=== PATIENT | female | born 1990 | race Asian ===

== ENCOUNTER 2024-10-19 10:34 | Inpatient (IN) | payer BC ==
[2024-10-19] MEDS ORDERED: fentaNYL 100 MCG/2 ML SDV IVPUSH PRN (16:17)
[2024-10-19] MEDS ORDERED: Famotidine 20 MG/2 ML SDV IVPUSH PRN (16:17)
[2024-10-19] MEDS ORDERED: Misoprostol 100 MCG Tab RECTAL PRN (16:17)
[2024-10-19] MEDS ORDERED: Ondansetron 4 MG/2 ML SDV IVPUSH PRN (16:17)
[2024-10-19] MEDS ORDERED: Methylergonovine 0.2 MG/1 ML Amp IM PRN (16:17)
[2024-10-19] MEDS ORDERED: Calcium Carbonate 500 MG Tab.Chew PO PRN (16:17)
[2024-10-19] MEDS ORDERED: Carboprost Tromethamine 250 MCG/1 ML Amp IM PRN (16:17)
[2024-10-19] MEDS ORDERED: Sodium Chloride 0.9% 10 ML Syringe FLUSH PRN (16:17)
[2024-10-19] MEDS ORDERED: Tranexamic Acid 1,000 MG in Sodium Chloride 0.9% 100 ML IV PRN (16:17)
[2024-10-19] MEDS ORDERED: Promethazine 25 MG/ML SDV IM PRN (16:17)
[2024-10-19] MEDS ORDERED: Acetaminophen 325 MG Tab PO PRN (16:17)
[2024-10-19] MEDS ORDERED: Naloxone 2 MG/2 ML Syringe IVPUSH PRN (16:17)
[2024-10-19] MEDS ORDERED: Oxytocin/Lactated Ringers 30 UNIT/500 ML BAG IV SCH ×2 (16:30→20:15)
[2024-10-19] MEDS ORDERED: Misoprostol 50 MCG (1/2 of 100 MCG) Tab SCH (16:30)
[2024-10-19 17:06] LABS: HEMATOCRIT 38.6 % (37.0-47.0); HEMOGLOBIN 12.9 g/dL (12.0-16.0); MEAN CORPUSCULAR HEMOGLOBIN 31.5 pg (27.0-34.0); MEAN CORPUSCULAR HGB CONC 33.4 g/dL (33.0-35.0); MEAN CORPUSCULAR VOLUME 94.1 fL (80-100); RED BLOOD CELL COUNT 4.1 10^6/uL (4.2-5.4); WHITE BLOOD CELL COUNT,WBC 9.1 10^3/uL (5.0-10.0)
[2024-10-19] MEDS: Lactated Ringers 1,000 ML IV SCH (18:00)
[2024-10-19] MEDS: Lactated Ringers 1,000 ML IV ONE (19:30)
[2024-10-19] MEDS: diphenhydrAMINE 50 MG/ML SDV IVPUSH ONE (20:23)
[2024-10-19] MEDS: Oxytocin/Normal Saline 30 UNIT/500 ML BAG IV SCH (21:17)
[2024-10-20] MEDS ORDERED: Oxytocin/Lactated Ringers 30 UNIT/500 ML BAG IV SCH ×2 (07:30→11:00)
[2024-10-20] MEDS: Oxytocin/Normal Saline 30 UNIT/500 ML BAG IV SCH (07:35)
[2024-10-20] MEDS ORDERED: Oxytocin/Normal Saline 30 UNIT/500 ML BAG IV SCH (09:45)
[2024-10-20] MEDS ORDERED: Morphine PF 10 MG/10 ML SDV ONE (09:47)
[2024-10-20] MEDS ORDERED: diphenhydrAMINE 50 MG/ML SDV IVPUSH PRN (10:58)
[2024-10-20] MEDS ORDERED: ePHEDrine 50 MG/ML SDV IVPUSH PRN (10:58)
[2024-10-20] MEDS ORDERED: Carboprost Tromethamine 250 MCG/1 ML Amp IM PRN (10:58)
[2024-10-20] MEDS ORDERED: Misoprostol 100 MCG Tab RECTAL PRN (10:58)
[2024-10-20] MEDS ORDERED: Morphine 2 MG/ML SYRINGE IVPUSH PRN (10:58)
[2024-10-20] MEDS ORDERED: Aluminum Hydroxide/Magnesium Hydroxide/Simethicone Susp 30 ML Cup PO PRN (10:58)
[2024-10-20] MEDS ORDERED: Naloxone 2 MG/2 ML Syringe IVPUSH PRN ×2 (10:58)
[2024-10-20] MEDS ORDERED: Methylergonovine 0.2 MG/1 ML Amp IM PRN (10:58)
[2024-10-20] MEDS ORDERED: Tranexamic Acid 1,000 MG in Sodium Chloride 0.9% 100 ML IV PRN (10:58)
[2024-10-20] MEDS ORDERED: Ondansetron 4 MG/2 ML SDV IVPUSH PRN (10:58)
[2024-10-20] MEDS ORDERED: Acetaminophen/HYDROcodone 325-5 MG Tab PO PRN (10:58)
[2024-10-20] MEDS: Lactated Ringers 1,000 ML IV SCH (12:00)
[2024-10-20] MEDS: Ketorolac 30 MG/ML SDV IVPUSH SCH (16:59)
[2024-10-20] MEDS: Acetaminophen/oxyCODONE 325-5 MG Tab PO PRN (16:59)
[2024-10-20] MEDS: Simethicone 80 MG Tab.Chew PO SCH (16:59)
[2024-10-20] MEDS: Acetaminophen 325 MG Tab PO SCH (17:36)
[2024-10-20] MEDS: Docusate Sodium 100 MG Cap PO SCH (21:47)
[2024-10-21 06:16] LABS: HEMATOCRIT 34.1 % (37.0-47.0); HEMOGLOBIN 10.9 g/dL (12.0-16.0)
[2024-10-21] MEDS: Prenatal Multivitamin with Calcium/Folic Acid/Iron Tab PO SCH (07:26)
[2024-10-21] MEDS: Acetaminophen/oxyCODONE 325-5 MG Tab PO PRN (13:23)
[2024-10-21] MEDS: Ibuprofen 800 MG Tab PO SCH (13:24)
[2024-10-22] MEDS: Bacitracin Oint 1 GM U/D Packet TOP PRN (21:21)
[2024-10-23] MEDS: Terbutaline 1 MG/ML SDV SUBCUT ONE (02:19)
[2024-10-23] MEDS: Lidocaine 1% 30 ML SDV INJECT ONE (02:19)
[2024-10-23] MEDS ORDERED: Take Home: Acetaminophen/HYDROcodone 325-5 MG, 5 Tab Pack PO ONE ×2 (08:41→12:45)
[2024-10-23] MEDS: Take Home: Acetaminophen/oxyCODONE 325-5 MG, 5 Tab Pack PO ONE (13:20)
[2024-10-23] MEDS: Hydrocortisone 2.5% Crm 30 GM Tube TOP PRN (13:58)
== END 2024-10-23 14:39 | disposition home or self-care (01) | DRG 540 ==
LOC: DL.OB 10:34 → UNDOADMOB 16:39 → OBSVTOIN 10-20 10:34
PROVIDERS: ADMIT Student in an Organized Health Care Education/Training Program; ATTEND Student in an Organized Health Care Education/Training Program
PROC: 4A1HXCZ Monitoring of Products of Conception, Cardiac Rate, External Approach (ICD-10-PCS; 2024-10-20)
PROC: 10D00Z1 Extraction of Products of Conception, Low, Open Approach (ICD-10-PCS; principal; 2024-10-20 12:00)
DX: O76 Abnormality in fetal heart rate and rhythm complicating labor and delivery (principal); Z3A.40 40 weeks gestation of pregnancy; Z37.0 Single live birth; O61.0 Failed medical induction of labor; O34.593 Maternal care for other abnormalities of gravid uterus, third trimester; O77.0 Labor and delivery complicated by meconium in amniotic fluid
CPT/HCPCS: 36415; 76815; 76819; 85014; 85018; 85027; 86850; 86900; 86901; A9270-GY; J1200; J1885; J2590; J7120